=== PATIENT | male | born 1975 | race Caucasian/White ===

== ENCOUNTER 2024-06-18 13:19 | Emergency (ER) | payer MEDICAID ==
[2024-06-18] MEDS: Iopamidol 612 MG/ML 100 ML Bottle IVPUSH ONE (13:33)
[2024-06-18] MEDS ORDERED: Sodium Chloride 0.9% 10 ML Syringe FLUSH PRN (13:34)
[2024-06-18 13:42] LABS: HEMATOCRIT 35.6 % (40.0-54.0); HEMOGLOBIN 12.3 g/dL (14.0-18.0); MEAN CORPUSCULAR HEMOGLOBIN 30.8 pg (27.0-34.0); MEAN CORPUSCULAR HGB CONC 34.6 g/dL (33.0-35.0); PLATELET COUNT,PLT 398 10^3/uL (150-450); WHITE BLOOD CELL COUNT,WBC 13.9 10^3/uL (5.0-10.0)
[2024-06-18 13:43] LABS: BASOPHILS PERCENT AUTO 0.4 % (0.0-1.0); EOSINOPHILS PERCENT AUTO 0.6 % (1.0-3.0); LYMPHOCYTES PERCENT AUTO 10.3 % (20.5-50.1); MONOCYTES PERCENT AUTO 4.9 % (2-8); NEUTROPHILS PERCENT AUTO 83.8 % (42.2-75.2)
[2024-06-18 13:58] LABS: ALANINE AMINOTRANSFERASE,ALT 39 U/L (16-63); ALBUMIN 3.2 g/dL (3.4-5.0); ALKALINE PHOSPHATASE 80 U/L (46-116); ANION GAP 12.2 mEq/L (7-13); ASPARTATE AMNIOTRANSFERASE,AST 39 U/L (15-37); BILIRUBIN TOTAL 0.4 mg/dL (0.2-1.0); BLOOD UREA NITROGEN,BUN 9 mg/dL (7-18); BUN/CREATININE RATIO 7.8 (No establ ref range); CALCIUM 8.3 mg/dL (8.5-10.1); CARBON DIOXIDE,CO2 28 mmol/L (21-32); CHLORIDE,CL 98 mmol/L (98-107); CREATININE 1.16 mg/dL (0.70-1.30); ESTIMATED GFR 77 mL/min (>=60); ETHANOL BLOOD MEDICAL < 3 mg/dL (0); GLUCOSE RANDOM 143 mg/dL (70-99); MAGNESIUM 1.7 mg/dL (1.8-2.4); POTASSIUM,K 3.2 mmol/L (3.5-5.1); PROTEIN TOTAL,TP 6.1 g/dL (6.4-8.2); SODIUM,NA 135 mmol/L (136-145)
[2024-06-18] MEDS ORDERED: fentaNYL 100 MCG/2 ML SDV IVPUSH ONE ×2 (14:12→14:51)
[2024-06-18] MEDS ORDERED: Ondansetron 4 MG/2 ML SDV IVPUSH ONE (14:12)
[2024-06-18 14:14] LABS: BAND PERCENT MAN 2 %; EOSINOPHILS PERCENT MAN 1 % (1-3); LYMPHOCYTES PERCENT MAN 17 % (20-50); MONOCYTES PERCENT MAN 5 % (2-8); SEG NEUTROPHILS PERCENT MAN 75 % (42-75)
[2024-06-18] MEDS ORDERED: Ondansetron 4 MG/2 ML SDV IV ONE (14:21)
[2024-06-18] MEDS ORDERED: Potassium Chloride 10 MEQ Tab.ER PO ONE ×2 (14:22→15:44)
[2024-06-18] MEDS ORDERED: fentaNYL 100 MCG/2 ML SDV IV ONE ×2 (14:22→15:10)
[2024-06-18 14:29] LABS: APPEARANCE,URINE CLEAR (CLEAR); BILIRUBIN,URINE NEGATIVE (NEGATIVE); COLOR,URINE YELLOW (YELLOW); GLUCOSE,URINE NEGATIVE (NEGATIVE); KETONES,URINE NEGATIVE (NEGATIVE); LEUKOCYTE ESTERASE,URINE NEGATIVE (NEGATIVE); NITRITE,URINE NEGATIVE (NEGATIVE); OCCULT BLOOD,URINE NEGATIVE (NEGATIVE); PROTEIN,URINE 30 (NEGATIVE); UROBILINOGEN,URINE 0.2 mg/dL (0.2-1.0)
[2024-06-18 14:32] LABS: AMPHETAMINES,URINE NEGATIVE (NEGATIVE); BARBITURATES,URINE NEGATIVE (NEGATIVE); BENZODIAZEPINE,URINE POSITIVE (NEGATIVE); MDMA (ECSTASY), URINE NEGATIVE (NEGATIVE); METHADONE,URINE NEGATIVE (NEGATIVE); METHAMPHETAMINES,URINE NEGATIVE (NEGATIVE); OPIATES,URINE NEGATIVE (NEGATIVE); OXYCODONE,URINE NEGATIVE (NEGATIVE); PHENCYCLIDINE,URINE NEGATIVE (NEGATIVE); TCA,URINE NEGATIVE (NEGATIVE)
[2024-06-18 14:38] LABS: BACTERIA,URINE FEW /HPF (0-FEW/HPF); EPITHELIAL CELLS,URINE RARE /HPF (NOT SEEN); RBC,URINE 0-5 /HPF (0-5)
[2024-06-18] MEDS ORDERED: HYDROmorphone 0.5 MG/0.5 ML Syringe IV ONE ×2 (14:45→16:32)
[2024-06-18] MEDS ORDERED: HYDROmorphone 0.5 MG/0.5 ML Syringe IVPUSH ONE ×2 (15:38→16:30)
[2024-06-18] MEDS ORDERED: HYDROmorphone 1 MG/ML Syringe ONE (16:53)
[2024-06-18] MEDS ORDERED: HYDROmorphone 1 MG/ML Syringe IV ONE (16:59)
== END 2024-06-18 17:18 ==
LOC: DL.ED 13:19
DX: S92.062A Displaced intraarticular fracture of left calcaneus, initial encounter for closed fracture (principal); S82.62XA Displaced fracture of lateral malleolus of left fibula, initial encounter for closed fracture; W13.2XXA Fall from, out of or through roof, initial encounter; Y93.89 Activity, other specified
CPT/HCPCS: 36415; 70450; 71260; 72125; 72128; 72131; 73610; 73700; 74177; 80053; 80305; 80307; 81001; 83735; 85025; 96374; 96375; 96376; 99285; A9270; J1171; J2405; J3010; Q9967

== ENCOUNTER 2024-06-25 14:49 | Emergency (ER) | payer MEDICAID | END 2024-06-25 16:47 | disposition home or self-care (01) | LOC: DL.ED 14:49 | DX: Z47.89 Encounter for other orthopedic aftercare (principal) | CPT/HCPCS: 99282 ==

== ENCOUNTER 2024-06-29 07:55 | Emergency (ER) | payer MEDICAID | END 2024-06-29 09:00 | disposition home or self-care (01) | LOC: DL.ED 07:55 | DX: Z48.00 Encounter for change or removal of nonsurgical wound dressing (principal) | CPT/HCPCS: 99282 ==